=== PATIENT | male | born 1955 | race Caucasian/White ===

== ENCOUNTER → 2017-11-09 | Day surgery (SDC) | payer OTHER ==
[~2017-11-09] VITALS: Ht 185.4 cm; Wt 99.1 kg
[~2017-11-09] MED LIST: ACETAMINOPHEN 1000 MG/100 ML 100 ML IV SCH; BUPIVACAINE/EPINEPHRINE 0.25% 50 ML VIAL ONE; CHLORHEXIDINE GLUCONATE 2 % 1 PACK (2 CLOTHS) TOPICAL PRN; COQ-50CA2 PO; LACTATED RINGER'S 1000 ML IV PRN; LEVO125T4 PO; LIDOCAINE HCL 1% PF 10 ML VIAL ONE; LIDOCAINE HCL 1% PF 5 ML SYRINGE OTHER ONE; METOPROLOL TARTRATE 25 MG TAB PO PRN; MIDAZOLAM HCL 2 MG/2 ML VIAL ONE; MULT-65 PO; POVIDONE IODINE 5% (ANTISEPSIS KIT) 4 APPLICATIONS EACH NARE PRN; PROPOFOL 200 MG/20 ML AMP IV ONE; SODIUM CHLORID 0.9% 500 ML IV PRN
--- NOTE | 2017-11-09 12:19 | MP ---
cc: Palmer Marley MD DATE OF OPERATION: 11/09/2017 PREOPERATIVE DIAGNOSIS: Progressive muscle weakness. POSTOPERATIVE DIAGNOSIS: Progressive muscle weakness. PROCEDURE: Right quadriceps muscle biopsy. SURGEON: Palmer Marley MD WAITER/WAITRESS THIRD CLASS: Staff. ANESTHESIA: MAC. ESTIMATED BLOOD LOSS: 10 mL. PROCEDURE: The patient was taken to the operating room and placed in supine position. MAC anesthesia was induced. The right thigh was prepped and draped in usual sterile fashion and a surgical timeout was performed to verify correct patient, procedure and site. In the mid anterior right thigh, an approximately 5 cm longitudinal incision was made overlying the vastus lateralis muscle. Lidocaine 1% without epinephrine was injected into the skin and subcutaneous tissue prior to making the incision. Electrocautery was used to dissect through subcutaneous tissue and provide hemostasis. Once the fascia was encountered, no further electrocautery was used. The fascia was nicked with the skin knife and the fascial incision extended using the Metzenbaum scissors. The vastus lateralis muscle belly was then exposed. The plastic muscle clamp device was placed underneath the thick portion of the muscle belly, and it was clamped in place to hold the muscle fibers from contraction. Mosquitos were placed on either end of the muscle fibers and then fibers were cut with the Metzenbaum scissors at the ends as well as laterally. This provided an approximately 1-2 cm in length and 1 cm width area of bulky fiber. This was sent to pathology as a fresh specimen. The muscle itself did appear atrophied grossly. Hemostasis in the remaining muscle was achieved with electrocautery. The fascia was closed with running 0 Vicryl suture. Deep dermal simple interrupted 3-0 Vicryl sutures were placed and the skin closed with subcuticular 4-0 PDS and Dermabond. The patient tolerated the procedure well and was taken to same-day surgery in stable condition. Palmer Marley MD JD/YASH , 12:01 PM , 12:18 PM
[2017-11-09 12:25] VITALS: BP 127/78; PULSE 53; RESP 18; TEMP 97.6; O2SAT 97
== END | disposition home or self-care (01) ==
LOC: HSDC 08:49
PROVIDERS: ATTEND Surgery
DX: M62.81 Muscle weakness (generalized) (principal); D69.6 Thrombocytopenia, unspecified; D64.9 Anemia, unspecified; R94.5 Abnormal results of liver function studies; K80.20 Calculus of gallbladder without cholecystitis without obstruction; J20.9 Acute bronchitis, unspecified; R53.83 Other fatigue; K76.0 Fatty (change of) liver, not elsewhere classified; E03.9 Hypothyroidism, unspecified
CPT/HCPCS: 01250; 20205; J2250; J3010; J7120